=== PATIENT | male | born 1955 | race Caucasian/White ===

== ENCOUNTER → 2018-09-09 | Outpatient (CLI) | payer OTHER ==
--- NOTE | 2018-09-09 14:59 | REP ---
Low-dose lung cancer screening CT study of the chest without contrast: History: Nicotine dependence. No comparison chest imaging. CT findings: Digital preliminary store clerk cashier radiograph is unremarkable. The lungs are somewhat hyperinflated. There are bibasilar linear fibrotic changes, right more so than left. No pulmonary mass lesion is seen. There is a 4 mm noncalcified pulmonary nodule in the left lower lobe on page 75 of 112 in series 201 of today's study. No other pulmonary nodule is appreciated. Vascular calcification is observed. Impression: Lung RADS category II benign appearing findings. 4 mm noncalcified nodule in the left lower lobe. Evidence of COPD. Recommend 12-month screening examination. Electronically Signed by Ulisses Jacobo MD 09/09/2018 04:18 P
== END ==
LOC: M RAD 10:09
PROVIDERS: ATTEND Internal Medicine Pulmonary Disease
DX: F17.218 Nicotine dependence, cigarettes, with other nicotine-induced disorders (principal); R91.1 Solitary pulmonary nodule

== ENCOUNTER → 2019-11-21 | Outpatient (CLI) | payer OTHER ==
--- NOTE | 2019-11-22 04:11 | REP ---
Clinical: Follow up solitary pulmonary nodule. Technique: Axial noncontrast images from the thoracic inlet to the upper abdomen with coronal and sagittal re-formations. Comparison: 09/09/2018. Findings: Lung albarran demonstrate moderate COPD/emphysematous changes with bibasilar fibrotic changes and mild bronchiectasis similar to prior examination. 3 mm noncalcified subpleural nodule in the left lower lobe (image 77) remain stable. No further acute consolidation, nodule or mass lesion appreciated. No pleural effusion. No pneumothorax. No obvious adenopathy. Mediastinum demonstrates stable moderate atherosclerotic changes to the thoracic aorta and coronary arteries. No aortic aneurysm, cardiomegaly or pericardial effusion. Surrounding musculoskeletal structures are intact. Impression: 1. Stable 3 mm noncalcified nodule in the left lower lobe. Consider 12-month follow-up examination to confirm stability/benignity. 2. Moderate COPD/emphysematous changes with bibasilar fibrotic changes and mild bronchiectasis again noted. Electronically Signed by Keyshawn Byrd MD 11/22/2019 04:03 A
== END ==
LOC: M RAD 08:41
PROVIDERS: ATTEND Internal Medicine Pulmonary Disease
DX: R91.1 Solitary pulmonary nodule (principal); J43.9 Emphysema, unspecified; J84.10 Pulmonary fibrosis, unspecified

== ENCOUNTER → 2020-01-04 | Outpatient (CLI) | payer OTHER ==
[~2020-01-04] MED LIST: ASPI81TA26 PO; BASA100I SUBQ; CYAN100050 PO; CYAN1000VL IM; GABA600T4 PO; INSUHUMDS SC; MAGN400T2 PO; METF10004 PO; OZEM2INJ SUBQ; POTA1TAB23 PO; PROAAER10 INH; SIMV20TA22 PO; STIO1AER INH; VITA50005 PO
== END ==
LOC: M LABSMTC 10:29
PROVIDERS: ATTEND Anesthesiology
DX: Z01.818 Encounter for other preprocedural examination (principal); Z11.59 Encounter for screening for other viral diseases
CPT/HCPCS: C9803; U0003

== ENCOUNTER 2020-01-09 10:35 | Day surgery (SDC) | payer OTHER ==
[~2020-01-09] VITALS: Ht 193 cm; Wt 111.6 kg
[~2020-01-09 10:35] MED LIST changes: +NS 1,000 ML IV ONE
[2020-01-09] MEDS ORDERED: propofoL 200 MG/20 ML VIAL As Ordered ONE ×2 (12:03→12:31)
[2020-01-09] MEDS ORDERED: LIDOCAINE 2% 100MG/5ML SDV (FOR ANES.) As Ordered ONE (12:03)
[2020-01-09] MEDS ORDERED: ePHEDrine SULFATE 25 MG/5 ML(5MG/ML) SYRINGE As Ordered ONE (12:32)
--- NOTE | 2020-01-09 12:34 | ROOR ---
Patient Name: Morris Bullock Procedure Date: 01/09/2020 12:02 PM Date of : 1955 Age: 64 Room: [facility] Gender: Male Note Status: Finalized Procedure: Colonoscopy Indications: Hematochezia Providers: Suresh ROSENBAUM MD Referring MD: AMARI SCHULER MD Requesting Provider: Medicines: Monitored Anesthesia Care Complications: No immediate complications. Procedure: Pre-Anesthesia Assessment: - The heart rate, respiratory rate, oxygen saturations, blood pressure, adequacy of pulmonary ventilation, and response to care were monitored throughout the procedure. The Colonoscope was introduced through the anus and advanced to the cecum, identified by appendiceal orifice and ileocecal valve. The colonoscopy was performed without difficulty. The patient tolerated the procedure well. The quality of the bowel preparation was unsatisfactory. Findings: The perianal and digital rectal examinations were normal. Seven sessile polyps were found in the descending colon and splenic flexure. The polyps were 4 to 6 mm in size. These polyps were removed with a cold snare. Resection and retrieval were complete. Three sessile polyps were found in the sigmoid colon. The polyps were 4 to 5 mm in size. These polyps were removed with a cold snare. Resection and retrieval were complete. Multiple medium-mouthed diverticula were found in the sigmoid colon. The exam was otherwise without abnormality on direct and retroflexion views. Impression: - Preparation of the colon was unsatisfactory. - Seven 4 to 6 mm polyps in the descending colon and at the splenic flexure, removed with a cold snare. Resected and retrieved. - Three 4 to 5 mm polyps in the sigmoid colon, removed with a cold snare. Resected and retrieved. - Diverticulosis in the sigmoid colon. - Internal hemorrhoids. - The examination was otherwise normal on direct and retroflexion views. Recommendation: - Repeat colonoscopy in 1 year because the bowel preparation was poor. - (Rec alternate colon preparation for next colonoscopy) Suresh Rosenbaum MD Suresh ROSENBAUM MD 01/09/2020 12:33:42 PM Electronically signed by Suresh ROSENBAUM MD Number of Addenda: 0 Note Initiated On: 01/09/2020 12:02 PM Estimated Blood Loss: Estimated blood loss: none.
[2020-01-09 13:06] VITALS: BP 123/72
== END 2020-01-09 13:15 | disposition home or self-care (01) ==
LOC: M OPP 10:35
PROVIDERS: ATTEND Internal Medicine Gastroenterology
DX: K63.5 Polyp of colon (principal); K57.30 Diverticulosis of large intestine without perforation or abscess without bleeding; K92.1 Melena; Z79.899 Other long term (current) drug therapy

== ENCOUNTER → 2020-03-15 | Outpatient (CLI) | payer OTHER ==
[~2020-03-15] MED LIST changes: -NS 1,000 ML IV ONE
== END ==
LOC: M LABSMTC 12:07
PROVIDERS: ATTEND Anesthesiology
DX: Z01.812 Encounter for preprocedural laboratory examination (principal); Z20.828 Contact with and (suspected) exposure to other viral communicable diseases
CPT/HCPCS: C9803; U0002

== ENCOUNTER 2020-03-18 13:27 | Day surgery (SDC) | payer OTHER ==
[~2020-03-18] VITALS: Ht 193 cm; Wt 110.4 kg
[~2020-03-18 13:27] MED LIST changes: +LR 1,000 ML IV ONE; +ceFAZolin SOD 2 GM in IV 1 EA IV ONE
[2020-03-18] MEDS ORDERED: HumaLOG INSULIN (NovoLOG) PER UNIT SC ONE (14:45)
[2020-03-18] MEDS ORDERED: LIDOCAINE 2% 100MG/5ML SDV (FOR ANES.) As Ordered ONE (14:53)
[2020-03-18] MEDS ORDERED: MIDAZOLAM INJ 2MG/2ML VIAL (J2250 PER 1MG) As Ordered ONE (14:53)
[2020-03-18] MEDS ORDERED: fentaNYL 100 MCG/2 ML INJECTION (J3010) As Ordered ONE (14:53)
[2020-03-18] MEDS ORDERED: propofoL 200 MG/20 ML VIAL As Ordered ONE (14:53)
[2020-03-18] MEDS ORDERED: LIDOCAINE 1% SDV 30ML VIAL As Ordered ONE (15:16)
[2020-03-18] MEDS ORDERED: ONDANSETRON 4MG/2ML VIAL As Ordered ONE (15:42)
[2020-03-18 17:20] VITALS: BP 121/80
--- NOTE | 2020-03-26 15:23 | RO ---
DATE OF OPERATION: 03/18/20 PREOPERATIVE DIAGNOSIS: Unexplained syncope. POSTOPERATIVE DIAGNOSIS: Unexplained syncope. PROCEDURE PERFORMED: Implantation of a subcutaneous cardiac rhythm monitor. FINDINGS: Unexplained syncope. SURGEON: Suresh Sue MD SUPERVISOR POWDERED SUGAR: None. ANESTHESIA: Lidocaine 1% local/monitored anesthetic care. SPECIMENS: None. ESTIMATED BLOOD LOSS: Less than 1 mL. BLOOD PRODUCTS: No blood products were placed. DRAINS: None. COMPLICATIONS: None. PROCEDURE DESCRIPTION: The patient was prepped and draped over the left anterior chest and sternum. Lidocaine 1% was used for local anesthetic. An incision approximately 1 cm in length was made with a #15 blade through the skin approximately one inch lateral to the left proximal border and at the left fourth interspace. Next, the guide on the insertion tool was placed into the incision and advanced parallel to the anterior chest wall in an approximately 45-degree left lateral-caudal direction. The insertion tool was rotated 180 degrees. The loop recorder was then advanced into the subcutaneous tissue using the plunger that came with the insertion tool. The plunger was then removed and then the insertion tool was removed leaving the loop recorder in situ. This position was found to be satisfactory with initial R amplitude of 0.30 millivolts. Next, the skin was approximated using a subcutaneous 4-0 Biosyn suture with both ends of the suture protruding 1 cm from the incision line on both sides. Next, three layers of Dermabond was applied. The Biosyn suture was then pulled through the incision line and removed entirely. The patient tolerated the procedure well without any immediate complications. The subcutaneous cardiac rhythm monitor implanted was a [employer] LINQ, model LNQ11 with serial number [id number]. [facility]
== END 2020-03-18 20:13 | disposition home or self-care (01) ==
LOC: M SDC 13:27
PROVIDERS: ATTEND Internal Medicine Cardiovascular Disease
DX: R55 Syncope and collapse (principal); E11.9 Type 2 diabetes mellitus without complications; E78.5 Hyperlipidemia, unspecified; J44.9 Chronic obstructive pulmonary disease, unspecified; F17.218 Nicotine dependence, cigarettes, with other nicotine-induced disorders; Z79.82 Long term (current) use of aspirin; Z79.4 Long term (current) use of insulin; Z79.84 Long term (current) use of oral hypoglycemic drugs; Z79.899 Other long term (current) drug therapy
CPT/HCPCS: 33285; C1764; J0690; J2250; J2405; J3010

== ENCOUNTER → 2020-04-17 | Outpatient (REF) | payer OTHER ==
[~2020-04-17] MED LIST changes: -LR 1,000 ML IV ONE; -ceFAZolin SOD 2 GM in IV 1 EA IV ONE
[2020-04-17 14:22] LABS: CREATININE, URINE 49.3 MG/DL; CREATININE,RANDOM URINE 49.3 MG/DL; MALB URINE SIEMENS 5.2 MG/L; MAU/CREAT RATIO 10.5 MCG/MG (0.0-30.0)
== END ==
LOC: M LAB REF 13:03
PROVIDERS: ATTEND Nurse Practitioner Family
DX: E11.65 Type 2 diabetes mellitus with hyperglycemia (principal)

== ENCOUNTER → 2022-02-20 | Outpatient (CLI) | payer MEDICARE ==
[~2022-02-20] MED LIST changes: +ADME100I SC; +BRIL90TA PO; +ERGO500029 PO; +GASTROGRAFIN SOLUTION 30ML (Q9963) As Ordered ONE; +HYDR-3713 PO; +ISOVUE-370 76% 100ML VIAL As Ordered ONE; +JARD1TAB PO; +MAGN400T33 PO; +MECL-86 PO; +METO1TAB7 PO; +NITR0.4S14 SL; +STEG5TAB PO; +TOUJ1.2I SC; +TREL1AER INH; -VITA50005 PO
== END ==
LOC: M RAD 13:33
DX: C64.2 Malignant neoplasm of left kidney, except renal pelvis (principal); E27.9 Disorder of adrenal gland, unspecified
CPT/HCPCS: 71260; 74177; Q9963; Q9967

== ENCOUNTER → 2022-04-22 | Outpatient (CLI) | payer MEDICARE ==
[~2022-04-22] MED LIST changes: -GASTROGRAFIN SOLUTION 30ML (Q9963) As Ordered ONE; -ISOVUE-370 76% 100ML VIAL As Ordered ONE
== END ==
LOC: M LABSMTC 10:01
PROVIDERS: ATTEND Anesthesiology
DX: Z01.812 Encounter for preprocedural laboratory examination (principal); Z11.52 Encounter for screening for COVID-19

== ENCOUNTER 2022-04-27 11:43 | Day surgery (SDC) | payer MEDICARE ==
[~2022-04-27] VITALS: Ht 193 cm; Wt 101.6 kg
[~2022-04-27 11:43] MED LIST changes: +ALBU8.5H INH; +BSS IRRIG/VANCO(10MG)/TOBRA(5MG)/EPINEPH(1:1000-0.5CC)500ML BAG-ORONLY IR ONE; +CABO20TA PO; +CEFUROXIME 1MG/0.1ML INTRACAMERAL INJ As Ordered ONE; +CYCLOPENTOLATE 1% OPHTH SOLN 2 ML BTL OD SCH; +LIDOCAINE 1% 1ML PF SYRINGE (OR EYE CASES) As Ordered ONE; +LIDOCAINE 3.5 % 1ML OPHTH TOPICAL GEL OU ONE; +METO1TAB32 PO; +OFLOXACIN 0.3 % (OCUFLOX) OPTH SOL 5ML OD ONE; +PHENYLEPHRINE 2.5% OPHTH SOL 2ML OD SCH; +PHENYLEPHRINE HCL 10 % OPHTH. SOL 5ML OD PRN; +SEMA1PEN2 PO; +SIMV40TA20 PO; +TROPICAMIDE 1% OPHTH SOLN 2ML OD SCH; +VITAMIN B12 INJECT SC
[2022-04-27] MEDS ORDERED: MIDAZOLAM INJ 2MG/2ML VIAL (J2250 PER 1MG) As Ordered ONE (12:36)
[2022-04-27] MEDS ORDERED: fentaNYL 100 MCG/2 ML INJECTION As Ordered ONE (13:28)
[2022-04-27 15:45] VITALS: BP 106/64
== END 2022-04-27 15:50 | disposition home or self-care (01) ==
LOC: M SDC 11:43
PROVIDERS: ATTEND Ophthalmology
DX: H25.11 Age-related nuclear cataract, right eye (principal); I10 Essential (primary) hypertension; E78.5 Hyperlipidemia, unspecified; E11.9 Type 2 diabetes mellitus without complications; Z92.21 Personal history of antineoplastic chemotherapy; Z85.528 Personal history of other malignant neoplasm of kidney; Z79.4 Long term (current) use of insulin; Z79.84 Long term (current) use of oral hypoglycemic drugs; F17.210 Nicotine dependence, cigarettes, uncomplicated; I25.10 Atherosclerotic heart disease of native coronary artery without angina pectoris; Z79.51 Long term (current) use of inhaled steroids; J44.9 Chronic obstructive pulmonary disease, unspecified
CPT/HCPCS: 66984; J0697; J2250; J3010; V2632

== ENCOUNTER → 2022-05-25 | Outpatient (CLI) | payer MEDICARE ==
[~2022-05-25] MED LIST changes: -BSS IRRIG/VANCO(10MG)/TOBRA(5MG)/EPINEPH(1:1000-0.5CC)500ML BAG-ORONLY IR ONE; -CEFUROXIME 1MG/0.1ML INTRACAMERAL INJ As Ordered ONE; -CYCLOPENTOLATE 1% OPHTH SOLN 2 ML BTL OD SCH; +ISOVUE-370 76% 100ML VIAL As Ordered ONE; -LIDOCAINE 1% 1ML PF SYRINGE (OR EYE CASES) As Ordered ONE; -LIDOCAINE 3.5 % 1ML OPHTH TOPICAL GEL OU ONE; -OFLOXACIN 0.3 % (OCUFLOX) OPTH SOL 5ML OD ONE; -PHENYLEPHRINE 2.5% OPHTH SOL 2ML OD SCH; -PHENYLEPHRINE HCL 10 % OPHTH. SOL 5ML OD PRN; -TROPICAMIDE 1% OPHTH SOLN 2ML OD SCH
== END ==
LOC: M RAD 10:12
PROVIDERS: ATTEND Nurse Practitioner Family
DX: C64.2 Malignant neoplasm of left kidney, except renal pelvis (principal)
CPT/HCPCS: 70470; Q9967

== ENCOUNTER → 2022-06-03 | Outpatient (CLI) | payer MEDICARE ==
[~2022-06-03] MED LIST changes: +GASTROGRAFIN SOLUTION 30ML As Ordered ONE
== END ==
LOC: M RAD 08:30
DX: C64.2 Malignant neoplasm of left kidney, except renal pelvis (principal)
CPT/HCPCS: 70470; 71260; 74177; Q9963; Q9967

== ENCOUNTER → 2022-06-24 | Outpatient (CLI) | payer MEDICARE ==
[~2022-06-24] MED LIST changes: -GASTROGRAFIN SOLUTION 30ML As Ordered ONE; -ISOVUE-370 76% 100ML VIAL As Ordered ONE
== END ==
LOC: M RAD 10:22
DX: C64.2 Malignant neoplasm of left kidney, except renal pelvis (principal)
CPT/HCPCS: 78306; A9503

== ENCOUNTER → 2022-08-24 | Outpatient (CLI) | payer MEDICARE, OTHER ==
[~2022-08-24] MED LIST changes: +INSUH10VL SC
== END ==
LOC: M LABSMTC 12:14
PROVIDERS: ATTEND Anesthesiology
DX: Z01.812 Encounter for preprocedural laboratory examination (principal)

== ENCOUNTER → 2022-08-27 | Day surgery (SDC) | payer MEDICARE, OTHER ==
[~2022-08-27] VITALS: Ht 193 cm; Wt 97.5 kg
[~2022-08-27] MED LIST changes: +NS 1,000 ML IV ONE
== END | disposition home or self-care (01) ==
LOC: M OPP 13:10
PROVIDERS: ATTEND Internal Medicine Gastroenterology
DX: Z86.010 Personal history of colon polyps (principal); Z53.8 Procedure and treatment not carried out for other reasons

== ENCOUNTER 2022-09-01 15:15 | Emergency (ER) | payer MEDICARE, OTHER ==
[~2022-09-01] VITALS: Ht 193 cm; Wt 105.6 kg
[~2022-09-01 15:15] MED LIST changes: -NS 1,000 ML IV ONE
[2022-09-01 15:16] VITALS: BP 127/66
== END 2022-09-01 16:17 | disposition left against medical advice (07) ==
LOC: M ED 15:15
DX: Z53.21 Procedure and treatment not carried out due to patient leaving prior to being seen by health care provider (principal)

== ENCOUNTER → 2022-10-14 | Outpatient (CLI) | payer MEDICARE ==
[~2022-10-14] MED LIST changes: +GASTROGRAFIN SOLUTION 30ML As Ordered ONE; +ISOVUE-370 76% 100ML VIAL As Ordered ONE
== END ==
LOC: M RAD 10:55
PROVIDERS: ATTEND Nurse Practitioner
DX: C64.9 Malignant neoplasm of unspecified kidney, except renal pelvis (principal); J43.2 Centrilobular emphysema; J43.8 Other emphysema; I35.8 Other nonrheumatic aortic valve disorders; I25.10 Atherosclerotic heart disease of native coronary artery without angina pectoris; Z95.5 Presence of coronary angioplasty implant and graft; I70.0 Atherosclerosis of aorta; M85.88 Other specified disorders of bone density and structure, other site
CPT/HCPCS: 71260; 74177; Q9963; Q9967

== ENCOUNTER → 2022-11-11 | Outpatient (CLI) | payer MEDICARE ==
[~2022-11-11] MED LIST changes: +AMOX875T; -GASTROGRAFIN SOLUTION 30ML As Ordered ONE; -ISOVUE-370 76% 100ML VIAL As Ordered ONE
== END ==
LOC: M ONCR 13:10
PROVIDERS: ATTEND General Practice
DX: C79.72 Secondary malignant neoplasm of left adrenal gland (principal); Z85.528 Personal history of other malignant neoplasm of kidney; E11.9 Type 2 diabetes mellitus without complications; E78.5 Hyperlipidemia, unspecified; F17.210 Nicotine dependence, cigarettes, uncomplicated; Z71.2 Person consulting for explanation of examination or test findings; Z79.51 Long term (current) use of inhaled steroids; Z79.84 Long term (current) use of oral hypoglycemic drugs; Z79.85 Long-term (current) use of injectable non-insulin antidiabetic drugs; Z79.899 Other long term (current) drug therapy; Z80.3 Family history of malignant neoplasm of breast; Z90.5 Acquired absence of kidney; Z92.21 Personal history of antineoplastic chemotherapy; Z92.3 Personal history of irradiation

== ENCOUNTER 2022-12-16 09:44 | Outpatient (RCR) | payer MEDICARE, OTHER ==
[~2022-12-16 09:44] MED LIST changes: +CYAN-1 PO; -CYAN100050 PO
[2022-12-23] MEDS ORDERED: METF-838 PO (11:56)
[2022-12-23] MEDS ORDERED: MECL-136 PO (11:56)
[2022-12-24] MEDS ORDERED: CABO20TA PO (08:09)
== END 2022-12-18 ==
LOC: M ONCR 09:44
PROVIDERS: ATTEND General Practice
DX: C79.72 Secondary malignant neoplasm of left adrenal gland (principal)

== ENCOUNTER 2023-04-16 08:04 | Day surgery (SDC) | payer MEDICARE, OTHER ==
[~2023-04-16] VITALS: Ht 195.6 cm; Wt 114.7 kg
[~2023-04-16 08:04] MED LIST changes: +MECL-136 PO; +METF-838 PO; +NS 1,000 ML IV ONE
[2023-04-16] MEDS ORDERED: fentaNYL 100 MCG/2 ML INJECTION As Ordered ONE (10:20)
[2023-04-16] MEDS ORDERED: LIDOCAINE 2% 100MG/5ML SDV (FOR ANES.) As Ordered ONE (10:20)
[2023-04-16] MEDS ORDERED: propofoL 500 MG/50 ML VIAL As Ordered ONE (10:20)
[2023-04-16 10:40] VITALS: TEMP 98.6
[2023-04-16 11:12] VITALS: BP 102/57; O2SAT 91
== END 2023-04-16 14:35 | disposition home or self-care (01) ==
LOC: M OPP 08:04
PROVIDERS: ATTEND Internal Medicine Gastroenterology
DX: Z86.010 Personal history of colon polyps (principal); R63.4 Abnormal weight loss; Z79.02 Long term (current) use of antithrombotics/antiplatelets; Z79.4 Long term (current) use of insulin; Z79.51 Long term (current) use of inhaled steroids; Z79.52 Long term (current) use of systemic steroids; Z79.82 Long term (current) use of aspirin; Z79.891 Long term (current) use of opiate analgesic; Z79.899 Other long term (current) drug therapy; F17.200 Nicotine dependence, unspecified, uncomplicated; I25.10 Atherosclerotic heart disease of native coronary artery without angina pectoris; E10.9 Type 1 diabetes mellitus without complications; E11.9 Type 2 diabetes mellitus without complications; Z95.5 Presence of coronary angioplasty implant and graft; Z86.74 Personal history of sudden cardiac arrest
CPT/HCPCS: 43235; G0105; J3010

== ENCOUNTER → 2023-04-30 | Outpatient (CLI) | payer MEDICARE, MEDICAID ==
[~2023-04-30] MED LIST changes: -NS 1,000 ML IV ONE
== END ==
LOC: M RAD 13:02
PROVIDERS: ATTEND Internal Medicine Hematology & Oncology
DX: C64.9 Malignant neoplasm of unspecified kidney, except renal pelvis (principal); C79.51 Secondary malignant neoplasm of bone
CPT/HCPCS: 78306; A9503

== ENCOUNTER → 2023-06-25 | Outpatient (CLI) | payer MEDICARE, MEDICAID ==
[~2023-06-25] MED LIST changes: +MIDO2.5T
== END ==
LOC: M PLARAD 07:35
PROVIDERS: ATTEND Internal Medicine Hematology & Oncology
DX: C64.9 Malignant neoplasm of unspecified kidney, except renal pelvis (principal)

== ENCOUNTER → 2024-02-28 | Outpatient (CLI) | payer MEDICARE, MEDICAID ==
[~2024-02-28] MED LIST changes: +BRIL90TA; +GABA-1490 PO; -GABA600T4 PO; +GASTROGRAFIN SOLUTION 30ML As Ordered ONE; +ISOVUE-370 76% 100ML VIAL As Ordered ONE; +ROSU20TA61
== END ==
LOC: M RAD 09:40
PROVIDERS: ATTEND Internal Medicine Hematology & Oncology
DX: C64.9 Malignant neoplasm of unspecified kidney, except renal pelvis (principal)
CPT/HCPCS: 71260; 74177; Q9963; Q9967

== ENCOUNTER → 2024-03-09 | Outpatient (CLI) | payer MEDICARE, MEDICAID ==
[~2024-03-09] MED LIST changes: -GASTROGRAFIN SOLUTION 30ML As Ordered ONE; -ISOVUE-370 76% 100ML VIAL As Ordered ONE
== END ==
LOC: M RAD 09:07
PROVIDERS: ATTEND Internal Medicine Hematology & Oncology
DX: C64.9 Malignant neoplasm of unspecified kidney, except renal pelvis (principal)
CPT/HCPCS: 78306; A9503

== ENCOUNTER → 2024-05-15 | Outpatient (CLI) | payer MEDICARE, OTHER ==
[~2024-05-15] MED LIST changes: -MIDO2.5T; +MIDO2.5T3; -ROSU20TA61; +ROSU20TA86
== END ==
LOC: M PLARAD 13:44
PROVIDERS: ATTEND Internal Medicine Hematology & Oncology
DX: C64.2 Malignant neoplasm of left kidney, except renal pelvis (principal)
CPT/HCPCS: 78815; A9552

== ENCOUNTER 2024-05-25 12:05 | Inpatient (IN) | payer MEDICARE ==
[~2024-05-25] VITALS: Ht 193 cm; Wt 107.0 kg
[~2024-05-25 12:05] MED LIST changes: -BRIL90TA; -MIDO2.5T3; +MIDO2.5T3 PO; -ROSU20TA86; +ROSU20TA86 PO
[2024-05-25 13:00] LABS: BASO # 0.1 10^3/uL (0.0-0.2); BASO % 0.5 % (0.0-1.0); EOS # 0.4 10^3/uL (0.0-0.5); HEMATOCRIT 54.4 % (42.0-52.0); HEMOGLOBIN 17.8 g/dl (13.5-17.5); LYMPH # 1.4 10^3/uL (1.5-5.0); LYMPH % 13.4 % (24.0-44.0); MEAN CORPUSCULAR HEMOGLOBIN 31.2 pg (27.0-33.0); MEAN CORPUSCULAR HGB CONC 32.7 g/dl (32.0-36.5); MEAN CORPUSCULAR VOLUME 95.4 fl (80.0-96.0); MONO # 1.4 10^3/uL (0.0-0.8); MONO % 13.5 % (2.0-8.0); NEUTROPHILS # 6.9 10^3/uL (1.5-8.5); NEUTROPHILS % 68.5 % (36.0-66.0); PLATELET COUNT, AUTOMATED 215 10^3/uL (150-450); WHITE BLOOD COUNT 10.1 10^3/uL (4.0-10.0)
[2024-05-25 13:12] LABS: INR 1.02; PARTIAL THROMBOPLASTIN TIME 29.4 SECONDS (24.8-34.2); PROTHROMBIN TIME 13.7 SECONDS (12.5-14.5)
[2024-05-25 13:28] LABS: BLOOD UREA NITROGEN 33 MG/DL (9-23); CALCIUM LEVEL 9.6 MG/DL (8.3-10.6); CARBON DIOXIDE LEVEL 27 MMOL/L (20-31); CHLORIDE LEVEL 102 MMOL/L (98-107); CK-MB VALUE MASS 11.9 NG/ML (<3.6); CREATININE FOR GFR 1.18 MG/DL (0.70-1.30); GLOMERULAR FILTRATION RATE > 60.0 (>49); GLUCOSE, FASTING 133 MG/DL (74-106); MAGNESIUM LEVEL 1.3 MG/DL (1.8-2.4); POTASSIUM SERUM 4.7 MMOL/L (3.5-5.1); SODIUM LEVEL 139 MMOL/L (136-145)
[2024-05-25 13:30] LABS: THYROID STIMULATING HORMONE 0.789 uIU/ML (0.55-4.78)
[2024-05-25 13:31] LABS: FREE T4 1.22 NG/DL (0.89-1.76)
[2024-05-25 13:38] LABS: CPK CREATINE PHOSPHOKINASE 556 U/L (46-171); MB/CK RELATIVE INDEX 2.14 (< OR =4)
[2024-05-25] MEDS: MAG SULF 1GM/100ML (MAG RUN) 1 GM in IV 1 EA IV ONE ×2 (14:29→15:36)
[2024-05-25 14:30] LABS: CK-MB VALUE MASS 9.8 NG/ML (<3.6)
[2024-05-25 14:39] LABS: MB/CK RELATIVE INDEX 1.93 (< OR =4)
[2024-05-25] MEDS ORDERED: MOM 30ML SUSPENSION UDC PO PRN (16:30)
[2024-05-25] MEDS ORDERED: MAALOX 30 ML SUSP *UDC PO PRN (16:30)
[2024-05-25] MEDS ORDERED: MED REC IN PROGRESS XX SCH (16:40)
[2024-05-25] MEDS ORDERED: HOME MED LIST COMPLETE! XX SCH (16:55)
[2024-05-25] MEDS ORDERED: ALBUTEROL 90 MCG/ACT 8GM HFA INHALER INH PRN (18:50)
[2024-05-25] MEDS ORDERED: NITROGLYCERIN 0.4MG SUBL TABLET SL PRN ×2 (18:50→19:10)
[2024-05-25] MEDS: DULoxetine 30MG CAPSULE (CYMBALTA) PO SCH (18:56)
[2024-05-25] MEDS: NS 500 ML IV ONE (18:57)
[2024-05-25] MEDS: LIDOCAINE 5% (LIDODERM) PATCH TD SCH (19:47)
[2024-05-25] MEDS ORDERED: DEXTROSE 50% 50ML SYRINGE IV PRN (19:55)
[2024-05-25] MEDS ORDERED: GLUCAGON INJ 1MG VIAL SC PRN (19:55)
[2024-05-25] MEDS ORDERED: GLUCOSE 4 GM CHEW PO PRN (19:55)
[2024-05-25] MEDS: NS 1,000 ML IV SCH (20:00)
[2024-05-25] MEDS ORDERED: metFORMIN (GLUCOPHAGE) 1000MG TABLET PO SCH (21:00)
[2024-05-25] MEDS ORDERED: HEPARIN SOD (PORCINE) 5000UNITS/ML 1ML VIAL/SYRINGE SQ SCH (21:00)
[2024-05-25] MEDS: HEPARIN SOD (PORCINE) 5000UNITS/ML 1ML VIAL/SYRINGE SQ SCH (21:00)
[2024-05-25] MEDS ORDERED: ENOXAPARIN 40MG/0.4ML SYRINGE (J1650 PER 10MG) SC SCH (21:00)
[2024-05-25] MEDS: ROSUVASTATIN 10 MG TAB (CRESTOR) PO SCH (21:00)
[2024-05-25] MEDS: TICAGRELOR 90 MG TABLET (BRILINTA) PO SCH (21:25)
[2024-05-25] MEDS: GABAPENTIN 300 MG CAP PO SCH (21:25)
[2024-05-25] MEDS: INSULIN LISPRO (NovoLOG) PER UNIT SC SCH (21:26)
[2024-05-25] MEDS: ACETAMINOPHEN 325 MG TAB PO PRN (21:45)
[2024-05-25 22:07] VITALS: BP 119/72; TEMP 97.6; O2SAT 94
[2024-05-25 23:20] VITALS: BP 117/71; TEMP 97.7; O2SAT 91
[2024-05-26] VITALS (7 sets, daily range): BP systolic 104–119; BP diastolic 60–79; TEMP 97.5–98.3; O2SAT 91–93
[2024-05-26] MEDS: MAG SULF 1GM/100ML (MAG RUN) 1 GM in IV 1 EA IV SCH (00:16)
[2024-05-26 05:24] LABS: BLOOD UREA NITROGEN 27 MG/DL (9-23); CALCIUM LEVEL 9.1 MG/DL (8.3-10.6); CARBON DIOXIDE LEVEL 26 MMOL/L (20-31); CHLORIDE LEVEL 105 MMOL/L (98-107); CREATININE FOR GFR 1.04 MG/DL (0.70-1.30); GLOMERULAR FILTRATION RATE > 60.0 (>49); GLUCOSE, FASTING 210 MG/DL (74-106); MAGNESIUM LEVEL 1.8 MG/DL (1.8-2.4); POTASSIUM SERUM 4.5 MMOL/L (3.5-5.1); SODIUM LEVEL 138 MMOL/L (136-145)
[2024-05-26] MEDS: SYMBICORT 160/4.5MCG INHALER 6GM INH SCH (07:43)
[2024-05-26] MEDS: MIDODRINE 2.5 MG TAB PO SCH (08:32)
[2024-05-26] MEDS: INSULIN LISPRO (NovoLOG) PER UNIT SC SCH (08:33)
[2024-05-26] MEDS: MAGNESIUM OXIDE 400MG TAB (MAG-OX) PO SCH (08:33)
[2024-05-26] MEDS ORDERED: POTASSIUM CHLORIDE 10MEQ SR TABLET PO SCH (09:00)
[2024-05-26] MEDS ORDERED: ISOVUE-370 76% 100ML VIAL As Ordered ONE (13:28)
[2024-05-26] MEDS: NS 1,000 ML IV SCH (15:32)
[2024-05-27 01:07] VITALS: BP 128/82; TEMP 98; O2SAT 96
[2024-05-27 04:22] VITALS: BP 127/68; TEMP 98.6; O2SAT 96
[2024-05-27 07:20] LABS: BLOOD UREA NITROGEN 18 MG/DL (9-23); CALCIUM LEVEL 8.6 MG/DL (8.3-10.6); CARBON DIOXIDE LEVEL 32 MMOL/L (20-31); CHLORIDE LEVEL 105 MMOL/L (98-107); CREATININE FOR GFR 0.94 MG/DL (0.70-1.30); GLOMERULAR FILTRATION RATE > 60.0 (>49); GLUCOSE, FASTING 195 MG/DL (74-106); MAGNESIUM LEVEL 1.5 MG/DL (1.8-2.4); POTASSIUM SERUM 4.5 MMOL/L (3.5-5.1); SODIUM LEVEL 140 MMOL/L (136-145)
[2024-05-27 07:31] LABS: BASO % 0.5 % (0.0-1.0); EOS # 0.6 10^3/uL (0.0-0.5); EOS % 7.7 % (0.0-3.0); HEMATOCRIT 46.5 % (42.0-52.0); LYMPH # 1.4 10^3/uL (1.5-5.0); LYMPH % 17.1 % (24.0-44.0); MEAN CORPUSCULAR HEMOGLOBIN 32.1 pg (27.0-33.0); MEAN CORPUSCULAR HGB CONC 32.9 g/dl (32.0-36.5); MEAN CORPUSCULAR VOLUME 97.7 fl (80.0-96.0); MONO # 1.1 10^3/uL (0.0-0.8); MONO % 13.8 % (2.0-8.0); NEUTROPHILS # 4.9 10^3/uL (1.5-8.5); NEUTROPHILS % 60.7 % (36.0-66.0); PLATELET COUNT, AUTOMATED 184 10^3/uL (150-450); RED BLOOD COUNT 4.76 10^6/uL (4.30-6.10)
[2024-05-27 07:32] LABS: HEMOGLOBIN 15.3 g/dl (13.5-17.5)
[2024-05-27 07:36] LABS: CHOLESTEROL LEVEL 107 MG/DL (<200); CHOLESTEROL RISK RATIO 4.47 (<5); HDL CHOLESTEROL 23.9 MG/DL (>40); LDL CHOLESTEROL 62.3 MG/DL (<100); NON-HDL-C 83.1 MG/DL; TRIGLYCERIDES LEVEL 104 MG/DL (<150)
[2024-05-27 08:00] VITALS: BP 114/60; TEMP 97.4; O2SAT 95
[2024-05-27] MEDS ORDERED: ATORVASTATIN 20 MG TAB PO SCH (09:00)
[2024-05-27 11:56] VITALS: BP 115/70; TEMP 97.8; O2SAT 91
[2024-05-27] MEDS: MAG SULF 1GM/100ML (MAG RUN) 1 GM in IV 1 EA IV SCH (12:51)
[2024-05-27] MEDS ORDERED: MAGN400T2 PO (14:04)
[2024-05-27] MEDS ORDERED: CYMB1CAP5 PO (14:04)
[2024-05-27 16:08] VITALS: BP 123/65; TEMP 97.3; O2SAT 94
[2024-05-27 19:44] VITALS: BP 134/80; TEMP 98.6; O2SAT 91
== END 2024-05-27 21:45 | disposition short-term general hospital (02) | DRG 312 ==
LOC: M ED 12:05 → EDBD 12:05 → M ED INP 16:29 → M PCU 22:10
PROVIDERS: ADMIT Student in an Organized Health Care Education/Training Program; ATTEND Student in an Organized Health Care Education/Training Program
PROC: B246ZZZ Ultrasonography of Right and Left Heart (ICD-10-PCS; principal; 2024-05-27)
DX: R55 Syncope and collapse (principal); E83.42 Hypomagnesemia; F03.90 Unspecified dementia, unspecified severity, without behavioral disturbance, psychotic disturbance, mood disturbance, and anxiety; I25.10 Atherosclerotic heart disease of native coronary artery without angina pectoris; I10 Essential (primary) hypertension; J44.9 Chronic obstructive pulmonary disease, unspecified; E11.51 Type 2 diabetes mellitus with diabetic peripheral angiopathy without gangrene; F17.210 Nicotine dependence, cigarettes, uncomplicated; I77.1 Stricture of artery; M79.2 Neuralgia and neuritis, unspecified; E78.5 Hyperlipidemia, unspecified; S00.93XA Contusion of unspecified part of head, initial encounter; W19.XXXA Unspecified fall, initial encounter; Y92.9 Unspecified place or not applicable; I73.9 Peripheral vascular disease, unspecified; Z95.5 Presence of coronary angioplasty implant and graft; Z86.73 Personal history of transient ischemic attack (TIA), and cerebral infarction without residual deficits; Z79.4 Long term (current) use of insulin; Z79.84 Long term (current) use of oral hypoglycemic drugs; Z79.85 Long-term (current) use of injectable non-insulin antidiabetic drugs; Z79.899 Other long term (current) drug therapy

== ENCOUNTER → 2025-04-13 | Outpatient (CLI) | payer MEDICARE, MEDICAID ==
[~2025-04-13] MED LIST changes: +CYMB1CAP5 PO; +ISOVUE-370 76% 100 ML VIAL ONE
== END ==
LOC: M PLAIMG 13:22
PROVIDERS: ATTEND Student in an Organized Health Care Education/Training Program
DX: C64.9 Malignant neoplasm of unspecified kidney, except renal pelvis (principal)
CPT/HCPCS: 70470; 71260; 74177; Q9967